=== PATIENT | female | born 1965 | race Caucasian/White ===

== ENCOUNTER 2017-04-22 09:41 | Emergency (ER) | payer MEDICAID ==
[~2017-04-22] VITALS: Ht 165.1 cm; Wt 63.5 kg
[2017-04-22 09:45] VITALS: BP 143/84
[2017-04-22] MEDS ORDERED: Cephalexin 500mg cap ORAL ONE (10:00)
[2017-04-22] MEDS ORDERED: PERMETHRIN60 GM TOPIC (11:02)
[2017-04-22] MEDS ORDERED: IBUPROFEN600 MG ORAL (11:02)
[2017-04-22] MEDS ORDERED: BENADRYL25 M3 PO (11:02)
[2017-04-22] MEDS ORDERED: KEFLEX500 MG ORAL (11:02)
[2017-04-22 11:22] VITALS: BP 139/80
[2017-04-22 11:24] VITALS: BP 139/80
--- NOTE | 2017-04-22 13:59 | Emergency Room Report ---
History of Present Illness General Chief Complaint: Skin Rash/Abscess Source: Patient Present Illness HPI Patient presents with complaints of rash diffusely Severe itching She also felt that the area on the left upper thigh was possibly getting infected Denies any fevers or chills denies any chest pain or shortness of breath denies any back or flank pain Patient requesting pain medication as well Denies any obvious contact to foreign chemical Allergies: Coded Allergies: No Known Allergies (Unverified , 04/22/17) Patient History Past Medical History: see triage record Pertinent Family History: none Reviewed Nursing Documentation: PMH: Agreed, PSxH: Agreed Nursing Documentation-PMH Past Medical History: No History, Except For Review of Systems All Other Systems: negative except mentioned in HPI Physical Exam Vital Signs Date Time Temp Pulse Resp B/P (MAP) Pulse Ox O2 Delivery O2 Flow Rate FiO2 04/22/17 09:22 98.1 108 18 143/84 100 Sp02 EP Interpretation: reviewed, normal General Appearance: well appearing, no apparent distress Head: normocephalic, atraumatic, other - dandruff Eyes: bilateral eye PERRL, bilateral eye EOMI ENT: hearing grossly normal, normal pharynx, TMs + canals normal, uvula midline Neck: full range of motion, supple, no meningismus, no bony tend Respiratory: lungs clear, normal breath sounds, no rhonchi, no respiratory distress, no retraction, no accessory muscle use Cardiovascular #1: normal peripheral pulses, regular rate, rhythm, no edema, no gallop, no JVD, no murmur Gastrointestinal: normal bowel sounds, non tender, soft, no mass, no organomegaly, non-distended, no guarding, no hernia, no pulsatile mass, no rebound Genitourinary: no CVA tenderness Musculoskeletal: normal inspection Neurologic: oriented x3, responsive, 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, motor strength/ tone normal, sensory intact Psychiatric: mood/affect normal Skin: other - Areas of urticarial rash also several areas of scab formation with linear markings, region over the left upper thigh area does appear more erythematous, concern for early cellulitis no obvious fluctuance, Lymphatic: normal inspection, no adenopathy Medical Decision Making Diagnostic Impression: Primary Impression: Rash and other nonspecific skin eruption Additional Impression: cellulitis ER Course Given the history examined findings there are some signs in line with likely scabies other nonspecific dermatitis also considered There is also evidence of possible early cellulitis Patient was treated symptomatically here Allowed to shower and wash her hair Elimite was applied and patient requires close followup Last Vital Signs Date Time Temp Pulse Resp B/P (MAP) Pulse Ox O2 Delivery O2 Flow Rate FiO2 04/22/17 11:26 98.1 04/22/17 11:24 68 17 139/80 100 Status: improved Disposition: HOME, SELF-CARE Condition: Improved Scripts Ibuprofen* (MOTRIN*) 600 Mg Tablet 600 MG ORAL Q8H Y for For Pain, #20 TAB 0 Refills Prov: TREMAINE QUIGLEY D.O. 04/22/17 Diphenhydramine HCl (Benadryl) 25 Mg Capsule 25 MG PO TID for 7 Days, CAP Prov: TREMAINE QUIGLEY D.O. 04/22/17 Permethrin* (ELIMITE*) 60 Gm Cream..g. 1 APPLIC TOPIC ONCE, #60 GM 0 Refills Apply cream from head to toe; leave on for 8-14 hours before washing off with water; may reapply in 1 week if live mites appear. Prov: TREMAINE QUIGLEY D.O. 04/22/17 Cephalexin* (KEFLEX*) 500 Mg Capsule 500 MG ORAL Q6H, #28 CAP 0 Refills Prov: TREMAINE QUIGLEY D.O. 04/22/17 Referrals: NOT CHOSEN IPA/MD,REFERRING (PCP) Patient Instructions: Rash, Cellulitis, [id number] Additional Instructions: Patient is provided with the discharge instructions notified to follow up with primary doctor in the next 2-3 days otherwise return to the er with any worsening symptoms. Please note that this report is being documented using [employer] technology. This can lead to erroneous entry secondary to incorrect interpretation by the dictating instrument. TREMAINE QUIGLEY D.O. Apr 22, 2017 13:59
== END 2017-04-22 11:26 | disposition home or self-care (01) ==
LOC: EDBD 09:41 → EMR 10:15
DX: L03.116 Cellulitis of left lower limb (principal); R21 Rash and other nonspecific skin eruption
CPT/HCPCS: 99284; J7512